=== PATIENT | male | born 2005 | race Hispanic/Latino ===

== ENCOUNTER 2023-07-03 15:34 | Emergency (ER) | payer SELFPAY ==
[2023-07-03 15:35] VITALS: BP 155/91; PULSE 94; RESP 18; TEMP 36; O2SAT 98
[2023-07-03 17:34] VITALS: BP 136/84; PULSE 85; RESP 16; O2SAT 98
--- NOTE | 2023-07-03 17:44 | EKG12_ITS ---
Test Reason : CP Blood Pressure : / mmHG Vent. Rate : 083 BPM Atrial Rate : 083 BPM P-R Int : 140 ms QRS Dur : 088 ms QT Int : 346 ms P-R-T Axes : 031 074 047 degrees QTc Int : 406 ms Normal sinus rhythm with sinus arrhythmia Normal ECG No previous ECGs available Confirmed by RICHI SELLERS, JERRELL ([id number]), features editor EDUAR JONES ([id number]) on 07/07/2023 10:20:35 AM Referred By: YESSENIA/RAHEL Confirmed By:SPIKE STODDARD MD
--- NOTE | 2023-07-03 17:47 | NURSING ---
NO OLD EKGS
--- NOTE | 2023-07-03 17:53 | EDS_ITS ---
<Statement entered by Janet Beasley MD - 07/03/23 23:14> I have personally performed a face to face assessment of the patient and have reviewed the DON Note. Patient presents secondary to chest pain and palpitations. He states symptoms started last evening and continued today so he presents for evaluation. He has a difficult time explaining the chest pain, denying that it is sharp and stabbing or heavy pressure. He denies shortness of breath. He at no time felt like he was going to pass out. No personal or family significant history. No risk factors for DVT/PE. Patient sitting upright in bed no acute distress. Head and neck examination unremarkable. Heart is regular rate and rhythm. Lung sounds are clear. Abdomen is soft and nontender. Neuro exam is normal. EKG is sinus 83 with no acute ischemia. Portable chest x-ray per my interpretation reveals no acute findings. Radiology interpretation reviewed and agrees. Lab work including troponin is negative. With patient having ongoing symptoms since last evening I do not believe he needs to wait for a 2-hour repeat troponin. He is reassured with the workup and return instructions were provided. HPI History of Present Illness Chief Complaint: Chest Pain Narrative Narrative: Patient is a 17-year-old male with no significant medical history presents to the emergency department left-sided chest pain, palpitations, radiation to left arm. This occurred last evening, continued today, so he is here for evaluation. Patient [place] any recent travel, denies any recent surgery, denies any history of blood clots in the legs or lungs. Patient denies anything that makes it worse or better. Patient denies any IV drug abuse. Patient is he smokes marijuana occasionally. [facility] Allergy/AdvReac Type Severity Reaction Status Date / Time No Known Allergies Allergy Verified 07/03/23 15:35 Social History Smoking Status: Never smoker ROS ROS ED ROS Narrative Constitutional: Negative for fever, chills, weight loss, weakness Eyes: Negative for vision loss, vision change, double vision ENT: Negative for any sore throat, ear pain, congestion Cardiovascular: Negative for any tightness. Positive left-sided chest pain radiation to left arm Respiratory: Negative for any cough, sputum production, hemoptysis, dyspnea, dyspnea on exertion, orthopnea Gastrointestinal: Negative for any abdominal pain, nausea, vomiting, diarrhea, constipation, blood in stool, blood in vomit : Negative for any urinary frequency, dysuria, retention, blood in urine Muscle skeletal: Negative for any neck pain, back pain Neurological: Negative for any headache, syncope, dizziness Skin: Negative for any rashes, itching, abrasions, lacerations Psychiatric: Negative for any depression, anxiety, stress, suicidal ideation, homicidal ideation Hematologic: Negative for any excessive bruising, easy bleeding EXAM Physical Exam Narrative Exam Narrative: Vital signs reviewed. HEET: Head normocephalic atraumatic, TMs clear bilaterally. Posterior pharynx is clear, moist mucous membranes. Nares clear bilaterally. Neck: Supple with no lymphadenopathy or tenderness. No signs of meningismus. Cardiac: Regular rate and rhythm no murmurs gallops or rubs, equal peripheral pulses bilaterally. Respiratory: Lungs clear to auscultation bilaterally. No chest tenderness. Abdomen: Soft, nontender, nondistended. No abdominal bruit or pulsatile masses. No hepatosplenomegaly Extremities: No peripheral edema, no signs of gross trauma or deformity. Active full range of motion of all extremities. Neuro: Cranial nerves II through XII intact, no focal neurological deficits. Skin: Clean dry and intact with no rash, purpura, petechiae, vesicles or pustules. Backs/flank: No CVA tenderness, no midline spinal tenderness, no deformity. Psych: Normal mood and affect. No SI, HI or acute psychosis. Const Vital Signs: 07/03/23 15:35 07/03/23 17:37 07/03/23 17:34 Temperature 96.8 F L Temperature Source Temporal Pulse Rate 94 85 Respiratory Rate 18 16 Respiratory Effort Normal Non-Labored Blood Pressure 155/91 H 136/84 H Blood Pressure Mean 112 101 Pulse Ox 98 98 Oxygen Delivery Method Room Air Room Air Positive well nourished and well developed General Appearance ED: well developed MDM MDM Lab Data Labs: Laboratory Results - last 24 hr 07/03/23 17:52 WBC 6.6 RBC 5.62 Hgb 15.9 Hct 46.3 MCV 82.4 MCH 28.3 MCHC 34.3 RDW Std Deviation 35.2 RDW Coeff of Jann 11.8 Plt Count 253 MPV 10.0 Immature Gran % (Auto) 0.300 Neut % (Auto) 61.3 Lymph % (Auto) 29.8 [place] % (Auto) 7.8 Eos % (Auto) 0.3 Baso % (Auto) 0.5 Absolute Neuts (auto) 4.0 Absolute Lymphs (auto) 1.96 Nucleated RBC % 0 Sodium 139 Potassium 3.6 Chloride 108 H Carbon Dioxide 23.0 Anion Gap 8 BUN 12 Creatinine 1.00 Est GFR (MDRD) Af Amer 123 Est GFR (MDRD) Non-Af 102 BUN/Creatinine Ratio 12.0 Glucose 95 Calcium 9.6 Troponin I High Sens < 3 L Radiography Diagnostic Testing: Clinical Impression(s) from Imaging Studies Chest X-Ray 07/03/23 17:53 IMPRESSION: No radiographic evidence of acute cardiopulmonary disease. Electronically Signed: Desmond Christensen MD at 18:25 EDT , EKG Normal sinus rhythm, sinus arrhythmia: Attestation: I personally reviewed and interpreted this EKG as follows: Comments: Normal sinus rhythm, sinus arrhythmia, rate of 83 bpm, CT 140 ms, QRS duration 88 ms, no acute ST elevation, no acute infarct noted. Treatment and Re-Evaluation :: Differential diagnosis includes however is not limited to: ACS, TN, anxiety, muscle skeletal pain, anxiety Patient appears to be in no obvious distress, patient's vital signs are stable, patient presents to the emergency department with complaints of left-sided chest pain based on the left arm. Patient received a full cardiac workup, chest x- ray, laboratory eval as well as a troponin. EKG was unremarkable. I have low suspicion of any ACS or TN. Patient reevaluation was unremarkable. Patient's laboratory values showed normal CBC, chemistries were okay, troponin was negative. Patient's chest x-ray two-view inter by the ER physician shows no radiographic evidence of any acute cardiopulmonary disease. At this time, do believe the patient stable for discharge, there is no evidence of any ACS TN or any life-threatening emergency. I spoke with the patient at length he agrees, he will follow-up outpatient. Patient feels better after being evaluated, stable for discharge. Discharge Plan Triage Chief Complaint: Chest Pain ED Midlevel Provider: Jose Miguel Browning ED Provider: Janet Beasley Dx/Rx/DC Orders Clinical Impression: Chest pain Instructions: ED Chest Pain, Noncardiac Primary Care Provider: Care Physician,No Primary Referrals: NOT,DEFINED [Non-Staff] - Activity Restrictions/Additional Instructions: Please follow-up outpatient, return for any worsening symptoms Disposition Disposition: Home, Self Care
--- NOTE | 2023-07-03 17:53 | RAD_ITS ---
EXAM: XR CHEST, 2 VIEWS CLINICAL INDICATION: chest pain TECHNIQUE: Frontal and lateral views of the chest. COMPARISON: No relevant prior studies available. FINDINGS: LUNGS AND PLEURAL SPACES: Unremarkable. No consolidation or edema. No pneumothorax. No effusion. HEART: Unremarkable. Cardiac silhouette not enlarged. MEDIASTINUM: Central airways and mediastinal contour are unremarkable. BONES/JOINTS: Unremarkable. No acute fracture. SOFT TISSUES: Unremarkable. RAD/Chest PA and Lateral IMPRESSION: No radiographic evidence of acute cardiopulmonary disease. Electronically Signed: Desmond Christensen MD at 18:25 EDT ,
[2023-07-03 18:02] LABS: Absolute Lymphocyte Count 1.96 X10^3/uL (0.83-4.51); Basophil# 0.03 X10^3/uL; Basophil% 0.5 % (0-1); Eosinophil# 0.02 X10^3/uL; Eosinophils% 0.3 % (0-5); Hematocrit 46.3 % (40-54); Hemoglobin 15.9 g/dL (13.0-16.5); Lymphocyte # 1.96 X10^3/ul (0.83-4.51); Lymphocyte % 29.8 % (19-41); Mean Corp Hgb Conc 34.3 g/dL (32-36); Mean Corpuscular Hgb 28.3 pg (27.0-32.0); Mean Corpuscular Volume 82.4 fL (80-94); Monocyte# 0.51 X10^3/uL; Monocyte% 7.8 % (0-10); NRBC Flagged by Analyzer 0 % (0-5); Neutrophil # 4.04 X10^3/uL (2.7-7.7); Neutrophil % 61.3 % (47-70); Platelet Count 253 K/mm3 (150-450); RBC Distribution Width CV 11.8 % (11.6-14.6); RBC Distribution Width SD 35.2 fl (35.1-43.9); Red Blood Count 5.62 M/mm3 (4.6-6.2); White Blood Count 6.6 K/mm3 (4.4-11.0)
[2023-07-03 18:25] LABS: Anion Gap 8 (5-15); BUN 12 mg/dL (7-18); Calcium,Total 9.6 mg/dL (8.5-10.1); Chloride 108 mmol/L (98-107); EST Glomerular Filtration Rate 102 mL/min (>60); Est Glom Filt Rate - Afr Amer 123 mL/min (>60); Glucose 95 mg/dL (74-106); Potassium 3.6 mmol/L (3.5-5.1); Sodium Level 139 mmol/L (136-145); Troponin-I HS < 3 pg/mL (3.0-78.0)
[2023-07-03 19:04] VITALS: PULSE 100; RESP 16; TEMP 36.8; O2SAT 99
[2023-07-03 19:05] VITALS: BP 130/84; PULSE 100; RESP 16; TEMP 36.8; O2SAT 99
== END 2023-07-03 19:07 | disposition home or self-care (01) ==
PROVIDERS: Nurse Practitioner; Emergency Provider Emergency Medicine; Visit Provider Emergency Medicine
DX: R07.9 Chest pain, unspecified (principal)
CPT/HCPCS: 71046; 80048; 84484; 85025; 93005; 99283; A4216

== ENCOUNTER 2023-11-07 12:54 | Emergency (ER) | payer SELFPAY ==
[2023-11-07 12:55] VITALS: BP 109/71; PULSE 84; RESP 16; TEMP 36.6; O2SAT 98; BMI 20.1
--- NOTE | 2023-11-07 13:36 | EX.ED.DYSGE1 ---
HPI History of Present Illness Chief Complaint: Bite Detail of Chief Complaint: Possible bat bite Informant: patient Narrative Narrative: Patient presents to the emergency department with possible bat bite to the left collarbone area. Patient states he woke up this morning and noted the scratches. There have been bats noted in the dorm. Patient does not recall a bite or being bitten. Sent in by the [facility] to have rabies vaccine and immunoglobulin. Clinically feels well. PFSH PFSH Medical History no medical history Home Medications ?Medication ?Instructions ?Recorded ?Last Taken ?Type pantoprazole 20 mg tablet,delayed 20 mg PO DAILY 11/07/23 Unknown History release Allergy/AdvReac Type Severity Reaction Status Date / Time No Known Allergies Allergy Verified 11/07/23 12:55 Social History Smoking Status: Never smoker ROS ROS ED ROS Narrative Concern for bat bite Review of Systems ROS Unobtainable: other Constitutional Constitutional ED: Reports lethargy; Denies chills, fever(s), sweats or weight loss Eyes Eyes: Denies blurry vision, change in vision or diplopia ENT ENT ED: Denies rhinorrhea or sore throat Cardiovascular Cardiovascular: Denies chest pain, orthopnea or racing heartbeat Respiratory/Chest Respiratory/Chest: Denies cough, dyspnea, dyspnea on exertion, orthopnea or sputum Gastrointestinal Gastrointestinal: Denies abdominal pain, diarrhea, nausea or vomiting Genitourinary Genitourinary ED: Denies dysuria, hematuria or urinary frequency Musculoskeletal Musculoskeletal: Denies arthralgias, back pain, myalgias or neck pain Integumentary Reports other Details: Abrasion left collarbone ; Denies abscess, Abrasions or rash Neurologic Neurologic: Denies headache(s) or weakness Psychiatric Psychiatric: Denies anxiety, depression or suicidal thoughts Endocrine Endocrinology: Denies polydipsia, polyphagia or polyuria Hematologic/Lymphatic Hematologic/Lymphatic: Denies easy bleeding, easy bruising or lymphadenopathy Allergic/Immunologic Allergic/Immunologic ED: Denies mouth swelling, tongue swelling or urticaria EXAM Physical Exam Const Vital Signs: 11/07/23 12:55 Temperature 97.9 F Temperature Source Temporal Pulse Rate 84 Respiratory Rate 16 Blood Pressure 109/71 Blood Pressure Mean 83 Pulse Ox 98 Oxygen Delivery Method Room Air Positive well nourished and well developed General Appearance ED: well developed and NAD HEENT Reports TM's clear and moist mucous membranes normocephalic and atraumatic; Negative for trauma or tenderness Tympanic Membrane ED: Yes TM's clear Eyes PERRL and EOMs intact bilaterally General Eye ED: Negative for pale conjunctiva or scleral icterus Neck no lymphadenopathy, supple and no JVD General: Negative for tenderness Chest Wall inspection of chest normal and palpation of chest normal Chest Narrative: Abrasions that are linear small less than a centimeter in linear to left proximal collarbone area. These are linear and appear superficial. Chest: Negative for tenderness Resp normal respiratory effort and clear to auscultation bilaterally Effort and Inspection: Negative for respiratory distress or pain with movement Auscultation: Negative for rhonchi, wheezes or diminished lung sounds Cardio regular rate, regular rhythm, S1 normal heart sound, S2 normal heart sound and no murmurs Peripheral Pulses: pulses 2+ throughout GI normal to inspection, nondistended, normoactive bowel sounds, soft to palpation, non-tender, non-distended and no masses Back/Spine no CVA tenderness and no thoracic nor lumbar tenderness Extremity normal to inspection General Extremety ED: Negative for edema General Extremity: Negative for edema Neuro oriented x3, CN's II-XII intact bilaterally, no sensory deficits noted and gait normal Sensorium / Orientation: awake, alert, oriented to person, oriented to place and oriented to time Motor Exam: strength 5/5 throughout and strength abnormal Psych mental status grossly normal Skin no rashes or lesions noted and no wounds MDM MDM MDM Narrative Medical decision making narrative: Patient presents with concern for bat bite. He does have some superficial abrasions to the left collarbone area. Patient was ordered rabies vaccine and rabies immunoglobulin. I did inject a portion of the immunoglobulin 4-1/2 cc in the area of the skin around the abrasions left collarbone. He tolerated this well. He will be discharged to home and will be given a schedule to return for further rabies injections. Discharge Plan Triage Chief Complaint: Bite ED Provider: Mar Howell Dx/Rx/DC Orders Clinical Impression: Bat bite wound Instructions: Understanding Rabies Prescriptions: No Action pantoprazole 20 mg tablet,delayed release (DR/EC) 20 mg PO DAILY Primary Care Provider: Care Physician,No Primary Referrals: Care Physician,No Primary [Primary Care Provider] - Activity Restrictions/Additional Instructions: Keep the schedule given to the to return for further rabies injections. Print Language: Lithuanian Disposition Disposition: Home, Self Care
[2023-11-07] MEDS: Rabies Immune Globulin/PF 300 UNIT/ML, 5 ML VIAL 1270 UNIT IM (14:01)
[2023-11-07] MEDS: Rabies Vaccine,Human Diploid 2.5 UNITS Vial IM (14:02)
[2023-11-07 14:12] VITALS: BP 105/72; PULSE 80; RESP 16; TEMP 36.8; O2SAT 100
== END 2023-11-07 14:17 | disposition home or self-care (01) ==
PROVIDERS: Emergency Provider Emergency Medicine; Visit Provider Emergency Medicine
DX: T14.8XXA Other injury of unspecified body region, initial encounter (principal); Z23 Encounter for immunization; W55.81XA Bitten by other mammals, initial encounter; Y92.169 Unspecified place in school dormitory as the place of occurrence of the external cause
CPT/HCPCS: 90675; 99283; 90375

== ENCOUNTER → 2023-11-10 | Outpatient (CLI) | payer SELFPAY ==
[2023-11-10 13:09] VITALS: BP 110/74; PULSE 87; RESP 18; TEMP 36.2; O2SAT 97; BMI 22.1
[2023-11-10] MEDS: Rabies Vaccine,Human Diploid 2.5 UNITS Vial IM (13:26)
[2023-11-10 14:21] VITALS: BP 110/74; PULSE 87; RESP 19; TEMP 36.2; O2SAT 97; BMI 22.1
== END | disposition home or self-care (01) ==
DX: Z20.3 Contact with and (suspected) exposure to rabies (principal); Z23 Encounter for immunization
CPT/HCPCS: 90675

== ENCOUNTER → 2023-11-14 | Emergency (ER) | payer SELFPAY ==
[2023-11-14 15:13] VITALS: BP 112/67; PULSE 75; RESP 16; TEMP 36.2; O2SAT 96
[2023-11-14] MEDS: Rabies Vaccine,Human Diploid 2.5 UNITS Vial IM (15:43)
== END | disposition home or self-care (01) ==
LOC: ED 15:36
DX: Z23 Encounter for immunization (principal)
CPT/HCPCS: 90675; 99281

== ENCOUNTER → 2023-11-21 | Outpatient (CLI) | payer SELFPAY ==
[2023-11-21 13:26] VITALS: BP 127/71; PULSE 85; RESP 16; TEMP 35.8; O2SAT 99; BMI 19.5
[2023-11-21] MEDS: Rabies Vaccine,Human Diploid 2.5 UNITS Vial IM (13:51)
== END | disposition home or self-care (01) ==
LOC: ED 14:10
DX: Z23 Encounter for immunization (principal)
CPT/HCPCS: 90675